=== PATIENT | female | born 1960 | race Caucasian/White ===

== ENCOUNTER 2018-04-10 20:37 | Emergency (ER) | payer OTHER ==
[~2018-04-10] VITALS: Ht 160 cm; Wt 104.5 kg
[~2018-04-10 20:37] MED LIST: ADLT ASA LOW81 MG PO; ALLEGRA-D 1212 HOUR PO; ALPRAZOLAM0.5 MG PO; AMBIEN10 MG PO; AMOX/K CLAV875 M1 PO; AMOXICILLIN/PO500 MG PO; ANORO ELLIPTA 61 AER IN; ASPIRIN EC81 MG PO; AUGMENTIN500TAB PO; BIOTIN MAXI10000 MCG PO; BUSPIRONE15 MG PO; CHANTIX CONTINUI1 MG PO; CHANTIX STARTIN0.5 & PO; CHANTIX0.5 MG PO; CIPROFLOXACIN500 M1 PO; CLONAZEPAM1 M1 PO; CLONAZEPAM1 MG PO; CYMBALTA20 MG PO; DIAZEPAM5 M1 PO; DIAZEPAM5 MG PO; DOXEPIN HCL10 MG PO; EFFEXOR XR75 MG PO; FIORICET PO; FLEXERIL5 M1 PO; FLONASE NASAL50 MCG; FOSINOPRIL10 MG PO; HAIR/SKIN/NAILS1 TAB PO; HYDROCHLOROT25 MG PO; INDERAL LA60 M1 PO; KLOR-CON 88 MEQ PO; LEVAQUIN750 MG PO; LORTAB 5-325 MG1 TAB PO; MILK THISTLE500 M1 PO; OXYCODONE HCL5 MG PO; OXYCODONE10 M2 PO; PHENTERMINE37.5 MG OR; POT CHLORIDE10 ME1 PO; POT CHLORIDE10 ME5 OR; PREDNISONE10 MG PO; PROVENTIL HFA IN; ROCEPHIN1 G1 IV; SINEQUAN10 MG PO; SYNTHROID100 MCG PO; SYNTHROID125 MCG OR; SYNTHROID125 MCG PO; TRICOR48 MG PO; VALIUM5 MG OR; VENLAFAXINE150 MG PO; VENLAFAXINE75 M1 PO; VENLAFAXINE75 MG PO; ZITHROMAX500 MG/VIA IV; ZOLPIDEM10 M1 PO; ZOLPIDEM10 MG PO; ZPAK PO; ZYRTEC-D ALG PO; [UNRECOGNIZED DRUG - OTHER] PO
[2018-04-10] MEDS ORDERED: METHOCARBAMOL750 MG PO (21:13)
[2018-04-10] MEDS ORDERED: LOSARTAN/HCT1 TA2 PO (21:14)
[2018-04-10] MEDS ORDERED: EQ ASPIRIN ADUL81 MG PO (21:15)
[2018-04-10] MEDS ORDERED: DOXEPIN HCL10 MG PO (21:16)
[2018-04-10] MEDS ORDERED: FLUOXETINE HCL10 MG PO (21:17)
[2018-04-10] MEDS ORDERED: POTASSIUM99 MG PO (21:17)
[2018-04-10] MEDS ORDERED: APPLE CIDER PO (21:18)
[2018-04-10] MEDS ORDERED: CALCIUM600 M1 PO (21:19)
[2018-04-10] MEDS ORDERED: BACLOFEN10 MG PO (21:19)
[2018-04-10] MEDS ORDERED: LEVOTHYROXIN150 MC1 PO (21:25)
[2018-04-10 21:49] LABS: HEMATOCRIT 43.5 % (37.0-47.0); HEMOGLOBIN 14.4 g/dl (12.0-16.0); IMMATURE GRANULOCYTES 0.9 % (0.0-1.0); MEAN CORPUSCULAR HGB 30.1 pG CALC (26.0-32.0); MEAN CORPUSCULAR HGB CONC 33.1 g/L CALC (32.0-36.0); NEUT# 9.16 thou/uL (2.00-7.15); RED BLOOD COUNT 4.78 mill/uL (4.20-5.60); RED CELL DISTRI WIDTH 13.6 % (11.5-15.5)
[2018-04-10 21:59] LABS: ALBUMIN 4.2 g/dL (3.2-5.0); ALKALINE PHOSPHATASE 109 u/l (38-126); ANION GAP 17 (6-22 (CALC)); BILIRUBIN, TOTAL 0.5 mg/dL (0.0-1.4); BUN 18 mg/dL (7-17); BUN/CREATININE RATIO 11 (12-20 (CALC)); CARBON DIOXIDE 34 mmol/l (22-30); CHLORIDE 95 mmol/l (95-108); CREATININE 1.6 mg/dL (0.5-1.0); GFR 33 ML/MIN (>=60 (CALC)); GFR FOR AFR.AMER. 40 ML/MIN (>=60 (CALC)); POTASSIUM 3.1 mmol/l (3.5-5.1); SGOT/AST 30 u/l (14-36); SGPT/ALT 37 u/l (9-52); SODIUM 143 mmol/l (137-146); TOTAL PROTEIN 7.6 g/dL (6.3-8.2)
[2018-04-10 22:10] LABS: MYOGLOBIN 64 ng/mL (0 - 62)
[2018-04-10 22:26] LABS: URINE BILIRUBIN - DIPSTICK NEGATIVE (NEGATIVE); URINE BLOOD DIPSTICK NEGATIVE (NEGATIVE); URINE COLOR YELLOW; URINE GLUCOSE - DIPSTICK NEGATIVE (NEGATIVE); URINE KETONE TRACE mg/dL (NEGATIVE); URINE LEUK ESTERASE NEGATIVE (NEGATIVE); URINE NITRITE - DIPSTICK NEGATIVE (Negative); URINE PH 5.5 (4.5-8.0); URINE PROTEIN - DIPSTICK 30 mg/dL (NEG-TRACE); URINE SPECIFIC GRAVITY >=1.030; URINE UROBILINOGEN - DIPSTICK 0.2 E.U./dL (0.2)
[2018-04-10 22:33] LABS: COCAINE NEGATIVE (NEGATIVE); METHADONE NEGATIVE (NEGATIVE); TETRAHYDROCANNABIONOL NEGATIVE (NEGATIVE)
[2018-04-10 22:34] LABS: BARBITURATES NEGATIVE (NEGATIVE); TRICYLIC ANTIDEPRESSANTS NEGATIVE (NEGATIVE)
[2018-04-10 22:35] LABS: OXCYCODONE POSITIVE (NEGATIVE); URINE CLARITY SL CLOUDY
[2018-04-10 22:47] LABS: URINE BACTERIA MODERATE hpf; URINE COARSE GRANULAR CAST FEW lpf; URINE HYALINE CAST FEW lpf (NONE-RARE); URINE MUCUS MODERATE hpf (NONE-FEW); URINE RBC 0-2 RBC/hpf (0-5); URINE SQUAMOUS EPITHELIAL CELL FEW EPI/hpf (0-FEW)
[2018-04-10 22:50] LABS: URINE FINE GRAN CAST FEW lpf
[2018-04-10] MEDS ORDERED: ANTIVERT PO (23:56)
[2018-04-11 00:12] VITALS: BP 126/56
== END 2018-04-11 00:13 | disposition home or self-care (01) | DRG 149 ==
LOC: ED 20:37
PROVIDERS: Emergency Medicine
DX: R42 Dizziness and giddiness (principal); I10 Essential (primary) hypertension; J44.9 Chronic obstructive pulmonary disease, unspecified; F17.210 Nicotine dependence, cigarettes, uncomplicated; F32.9 Major depressive disorder, single episode, unspecified; F41.9 Anxiety disorder, unspecified; G89.29 Other chronic pain; M54.9 Dorsalgia, unspecified

== ENCOUNTER → 2019-01-04 | Outpatient (REF) ==
[~2019-01-04] MED LIST changes: +ANTIVERT PO; +APPLE CIDER PO; +BACLOFEN10 MG PO; +CALCIUM600 M1 PO; +EQ ASPIRIN ADUL81 MG PO; +FLUOXETINE HCL10 MG PO; +LEVOTHYROXIN150 MC1 PO; +LOSARTAN/HCT1 TA2 PO; +METHOCARBAMOL750 MG PO; +POTASSIUM99 MG PO
== END | disposition home or self-care (01) | DRG 645 ==
LOC: LAB 07:38
PROVIDERS: ATTEND Internal Medicine Endocrinology, Diabetes & Metabolism
DX: E03.9 Hypothyroidism, unspecified (principal)

== ENCOUNTER 2020-12-08 10:12 | Emergency (ER) | payer SELFPAY | END 2020-12-08 10:25 | disposition left against medical advice (07) | DRG 951 | LOC: ED 10:12 → LWOBS 10:25 | DX: Z53.21 Procedure and treatment not carried out due to patient leaving prior to being seen by health care provider (principal) ==

== ENCOUNTER 2022-02-24 11:18 | Emergency (ER) | payer MEDICARE ==
[~2022-02-24] VITALS: Ht 160 cm; Wt 100.0 kg
[2022-02-24 11:32] VITALS: BP 190/100
[2022-02-24] MEDS ORDERED: PROVENTIL0.083 % IN (11:44)
[2022-02-24 11:50] VITALS: BP 157/97
[2022-02-24 12:01] VITALS: BP 162/89
[2022-02-24 12:02] VITALS: BP 162/89
== END 2022-02-24 12:10 | disposition home or self-care (01) ==
LOC: ED 11:18
PROC: 0HQGXZZ Repair Left Hand Skin, External Approach (ICD-10-PCS; principal; 2022-02-24)
DX: S61.412A Laceration without foreign body of left hand, initial encounter (principal); E11.9 Type 2 diabetes mellitus without complications; I10 Essential (primary) hypertension; J44.9 Chronic obstructive pulmonary disease, unspecified; F32.A Depression, unspecified; F41.9 Anxiety disorder, unspecified; F17.200 Nicotine dependence, unspecified, uncomplicated; T48.6X6A Underdosing of antiasthmatics, initial encounter; W26.8XXA Contact with other sharp object(s), not elsewhere classified, initial encounter; Y92.009 Unspecified place in unspecified non-institutional (private) residence as the place of occurrence of the external cause; Z91.128 Patient's intentional underdosing of medication regimen for other reason

== ENCOUNTER 2022-09-06 09:57 | Emergency (ER) | payer MEDICARE ==
[~2022-09-06] VITALS: Ht 160 cm; Wt 98.0 kg
[~2022-09-06 09:57] MED LIST changes: +PROVENTIL0.083 % IN
[2022-09-06 10:13] VITALS: BP 194/104
[2022-09-06 10:31] VITALS: BP 174/65
[2022-09-06] MEDS ORDERED: KEFLEX500 MG PO (10:46)
[2022-09-06] MEDS ORDERED: HYDROCO/APAP1 TA9 PO (10:46)
[2022-09-06 10:48] VITALS: BP 174/65
== END 2022-09-06 10:54 | disposition home or self-care (01) ==
LOC: ED 09:57
DX: L72.3 Sebaceous cyst (principal); I10 Essential (primary) hypertension; E11.9 Type 2 diabetes mellitus without complications; J44.9 Chronic obstructive pulmonary disease, unspecified; F32.A Depression, unspecified; F41.9 Anxiety disorder, unspecified; F17.200 Nicotine dependence, unspecified, uncomplicated